=== PATIENT | male | born 1960 | race Caucasian/White ===

== ENCOUNTER 2021-05-07 10:04 | Emergency (ER) | payer OTHER ==
[~2021-05-07] VITALS: Ht 172.7 cm; Wt 68.9 kg
--- NOTE | 2021-05-07 10:17 | NUR ---
PT SEEN AND EXAMINED BY .
[2021-05-07 10:20] VITALS: BP 128/73
--- NOTE | 2021-05-07 10:42 | NUR ---
PT IS WHEELED TO CT SCAN VIA [facility].
[2021-05-07] MEDS ORDERED: TDAP [DIPH/PERTUSSIS/TET] 0.5 ML VIAL IM ONE ×2 (11:38→12:00)
--- NOTE | 2021-05-07 11:49 | NUR ---
ANKLE SPLINT APPLIED BY IRON CASTER.
== END 2021-05-07 11:51 | disposition home or self-care (01) ==
LOC: ER 10:12
DX: S93.402A Sprain of unspecified ligament of left ankle, initial encounter (principal); S01.01XA Laceration without foreign body of scalp, initial encounter; W20.8XXA Other cause of strike by thrown, projected or falling object, initial encounter; Y93.89 Activity, other specified; Y92.89 Other specified places as the place of occurrence of the external cause; Y99.0 Civilian activity done for income or pay
CPT/HCPCS: 12002; 29515; 70450; 73590; 73610; 73630; 90471; 90715; 99284; A6403

== ENCOUNTER 2024-04-15 12:28 | Emergency (ER) | payer OTHER ==
[~2024-04-15] VITALS: Ht 167.6 cm; Wt 70.8 kg
[2024-04-15 12:36] VITALS: BP 137/77; TEMP 97.9
[2024-04-15 15:12] VITALS: O2SAT 99
== END 2024-04-15 15:14 | disposition home or self-care (01) ==
LOC: ER 12:34
DX: S93.402A Sprain of unspecified ligament of left ankle, initial encounter (principal); X50.1XXA Overexertion from prolonged static or awkward postures, initial encounter; Y93.89 Activity, other specified; Y92.091 Bathroom in other non-institutional residence as the place of occurrence of the external cause; Y99.8 Other external cause status
CPT/HCPCS: 73590-TC; 73610-TC